=== PATIENT | female | born 1950 | race Caucasian/White ===

== ENCOUNTER 2019-01-06 07:12 | Emergency (ER) | payer MEDICARE, OTHER ==
[2019-01-06] MEDS ORDERED: FENTANYL CITRATE INJ/PF 100 MCG/2 ML AMPUL IV ONE ×2 (07:33→11:16)
[2019-01-06] MEDS ORDERED: ONDANSETRON HCL INJ/PF 4 MG/2 ML SDV IV ONE ×2 (07:35→11:16)
--- NOTE | 2019-01-06 08:12 | RADIOLOGY REPORT (SQ) ---
EXAM DESCRIPTION: HIP LEFT AP/LATERAL COMPLETED DATE/TIME: 01/06/2019 8:04 am REASON FOR STUDY: fall, hip pain COMPARISON: None. NUMBER OF VIEWS: Two views. TECHNIQUE: AP pelvis and additional frog-leg view of the left hip. LIMITATIONS: None. FINDINGS: MINERALIZATION: Normal. LEFT HIP: There is a transverse, displaced and foreshortened fracture of the proximal left femoral di aphysis. RIGHT HIP: No fracture or dislocation. No worrisome bone lesions. PELVIS: No fracture. SOFT TISSUES: No findings. OTHER: No other significant finding. IMPRESSION: There is a transverse, displaced and foreshortened fracture of the proximal left femoral diaphysis. TECHNICAL DOCUMENTATION: JOB ID: [id number] [employer]- All Rights Reserved Reading location - IP/workstation name: [email or web address]
[2019-01-06] MEDS ORDERED: NORMAL SALINE 1000 ML 1,000 ML IV ONE (08:34)
[2019-01-06 08:47] LABS: ABSOLUTE EOSINOPHILS # (AUTO) 0.1 10^3/uL (0.0-0.6); ABSOLUTE LYMPHOCYTES (AUTO) 1.5 10^3/uL (0.5-4.7); ABSOLUTE MONOCYTES (AUTO) 0.4 10^3/uL (0.1-1.4); ABSOLUTE NEUT (AUTO) 5.5 10^3/uL (1.7-8.2); BASOPHILS % (AUTO) 0.6 % (0-2); EOSINOPHILS % (AUTO) 0.8 % (0-6); HEMATOCRIT 37.2 % (36.0-47.0); HEMOGLOBIN 12.9 g/dL (12.0-15.5); LYMPHOCYTES % (AUTO) 19.6 % (13-45); MEAN CORPUSCULAR HEMOGLOBIN 30.5 pg (27.0-33.4); MEAN CORPUSCULAR HGB CONC 34.6 g/dL (32.0-36.0); MEAN CORPUSCULAR VOLUME 88 fl (80-97); MONOCYTES % (AUTO) 5.6 % (3-13); PLATELET COUNT 245 10^3/uL (150-450); RED BLOOD COUNT 4.22 10^6/uL (3.72-5.28); RED CELL DISTRIBUTION WIDTH 14.5 % (11.5-14.0); SEGMENTED NEUTROPHILS % (AUTO) 73.4 % (42-78); TOTAL CELLS COUNTED % (AUTO) 100 %; WHITE BLOOD COUNT 7.4 10^3/uL (4.0-10.5)
--- NOTE | 2019-01-06 09:05 | ER Document Report ---
Entered by GERMÁN SHAW SCRIBE 01/06/19 0741 Acting as scribe for:FLAVIO LINK MD ED Extremity Problem, Lower - General Stated Complaint: FALL/HIP PAIN Time Seen by Provider: 01/06/19 07:23 Primary Care Provider: JACKY DAVIDSON MD [Primary Care Provider] - Follow up as needed Mode of Arrival: Medic Information source: Patient, Relative, Outside Facility Records Notes: 69-year-old female that presents to the emergency department today with complaints of left hip pain after a fall that occurred just prior to arrival. Patient states the pelvic binder that EMS put on her has reduced her pain significantly. The patient was out walking with her granddaughter, she hit her toe on some uneven concrete, fell and had immediate pain to her left hip. 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 HEENT: Normocephalic. Atraumatic. PERRL. Extraocular movements intact. Oropharynx clear. Neck: Supple. Non-tender. Respiratory: No respiratory distress. Clear and equal breath sounds bilaterally. Cardiovascular: Regular rate and rhythm. Abdominal: Normal Inspection. Non-tender. No distension. Normal Bowel Sounds. Back: Non-tender. No deformity or step off. Extremities: Upper extremities: Normal inspection. Normal ROM. Lower extremities: Wearing pelvic binder. Left knee is flexed and tucked under her right leg. Left hip is externally rotated. Left foot is warm, sensation intact distally. Neurological: Normal cognition. AAOx4. Normal speech. Psychological: Normal affect. Normal Mood. Skin: Warm. Dry. Normal color. Course - Re-evaluation Re-evalutation: 01/06/19 09:16 I reviewed the findings with the patient and her granddaughter. We do not have orthopedic coverage at this facility today. Initially requested transfer to [facility]. They are on regional management, meaning they are not taking anything but STEMI's and strokes. I next called [facility]. 01/06/19 09:20 Dr. Vu from the orthopedic service at [facility] called back and will consult on the patient and operate on her. There is a bed delay at this time, and they will get back with me about a timeframe for transfer. She did mention that the bones looked like she was taken biphosphonate's, which she is, and she appeared to be at risk of a similar fracture on the other side and would consider doing a prophylactic nailing on the right side at the same time that a repair of the left side. 01/06/19 09:33 On further questioning, the patient reports that she has been having pain on the right hip region for the last several weeks or more. She has not been having pain on the left side which fractured today. 01/06/19 11:09 [facility] transfer center called back and reported that they were on a 24 to 36- hour bed delay at this time. I called [facility] and spoke with Dr. Braga from the orthopedic service, he will accept the patient in transfer for surgical repair. 01/06/19 12:04 Transport is here for the patient to go to [facility]. She is resting comfortably. Vital signs are stable. She is stable for transport. - Vital Signs Vital signs: Temp Pulse Resp BP Pulse Ox 98.8 F 64 20 127/61 H 95 01/06/19 11:53 01/06/19 11:53 01/06/19 11:53 01/06/19 11:53 01/06/19 11:53 - Laboratory Result Diagrams: 01/06/19 08:29 01/06/19 08:29 Laboratory results interpreted by me: 08/02/19 08/02/19 08:29 08:29 RDW 14.5 H Sodium 136.7 L Total Protein 6.2 L - Diagnostic Test Radiology reviewed: Image reviewed, Reports reviewed - Left hip shows a matthews sverse, displaced and foreshortened fracture of the proximal left femoral diaphysis - EKG Interpretation by Me EKG shows normal: Sinus rhythm, [place], Intervals, QRS Complexes, ST-T Waves Rate: Normal - 53 Rhythm: NSR Discharge - Discharge Clinical Impression: Fracture of proximal end of femur Qualifiers: Encounter type: initial encounter Fracture type: closed Laterality: left Qualified Code(s): S72.002A - Fracture of unspecified part of neck of left femur, initial encounter for closed fracture Condition: Stable Disposition: [facility] Referrals: JACKY DAVIDSON MD [Primary Care Provider] - Follow up as needed Scribe Attestation: 01/06/19 09:16 I personally performed the services described in the documentation, reviewed and edited the documentation which was dictated to the scribe in my presence, and it accurately records my words and actions. I personally performed the services described in the documentation, reviewed and edited the documentation which was dictated to the scribe in my presence, and it accurately records my words and actions.
[2019-01-06 09:08] LABS: ALANINE AMINOTRANSFERASE 35 U/L (9-52); ALBUMIN 3.9 g/dL (3.5-5.0); ALKALINE PHOSPHATASE 53 U/L (38-126); ANION GAP 7 (5-19); ASPARTATE AMINO TRANSFERASE 30 U/L (14-36); BILIRUBIN,DIRECT 0.3 mg/dL (0.0-0.4); BILIRUBIN,TOTAL 0.5 mg/dL (0.2-1.3); BLOOD UREA NITROGEN 18 mg/dL (7-20); CARBON DIOXIDE 28 mmol/L (22-30); CHLORIDE 102 mmol/L (98-107); GLUCOSE 109 mg/dL (75-110); POTASSIUM 4.3 mmol/L (3.6-5.0); TOTAL PROTEIN 6.2 g/dL (6.3-8.2)
[2019-01-06] MEDS ORDERED: DEXTROSE 5%-LACTATED RINGERS 1,000 ML IV ONE (09:23)
[2019-01-06 09:58] LABS: APPEARANCE,URINE CLEAR; BILIRUBIN,URINE NEGATIVE (NEGATIVE); COLOR,URINE YELLOW; GLUCOSE, URINE NEGATIVE (NEGATIVE); KETONES,URINE NEGATIVE (NEGATIVE); LEUKOCYTE ESTERASE,URINE NEGATIVE (NEGATIVE); NITRITE,URINE NEGATIVE (NEGATIVE); PROTEIN,URINE NEGATIVE (NEGATIVE); URINE SPECIFIC GRAVITY 1.016; UROBILINOGEN,URINE NEGATIVE mg/dL (<2.0)
[2019-01-06 11:54] VITALS: BP 127/61
--- NOTE | 2019-01-06 14:33 | EKG REPORT ---
SEVERITY:- OTHERWISE NORMAL ECG - SINUS RHYTHM BORDERLINE LEFT AXIS DEVIATION : Confirmed by: Yas Cohn MD 06-Jan-2019 14:31:33
== END 2019-01-06 12:10 | disposition short-term general hospital (02) ==
LOC: ER 07:12
DX: S72.002A Fracture of unspecified part of neck of left femur, initial encounter for closed fracture (principal); M25.552 Pain in left hip; W19.XXXA Unspecified fall, initial encounter; I10 Essential (primary) hypertension
CPT/HCPCS: 93005; 96376; 99284; 96361; 51702; 96374; 96375; 36415; 85025; 80053; 81001; 73502; 93010; J3010; J2405; J7121; J7030

== ENCOUNTER → 2020-05-18 | Outpatient (CLI) | payer MEDICARE, OTHER ==
[2020-05-18 13:50] VITALS: BP 116/58
--- NOTE | 2020-05-18 13:50 | ER RDC ASSESSMENT REPORT ---
Intake - In the Last 14 days Have you traveled outside [place]?: No Have you been in close contact with someone CONFIRMED: Yes Worked in Healthcare?: No - Symptoms Subjective Fever([place] feverish): No Chills: No Muscule Aches: No Runny Nose: No Sore Throat: No Cough (New or worsening chronic cough): No Shortness of breath: No Nausea or Vomiting: No Headache: No Abdominal Pain: No Diarrhea(3 or more loose stools in last 24 hours): No - Do you have any of the following Chronic lung disease: Asthma or emphysema or COPD: No Cystic Fibrosis: No Diabetes: No High Blood Pressure: Yes Cardiovascular Disease: Yes Chronic Kidney Disease: No Chronic Liver Disease: No Chronic blood disorder like Sickle Cell Disease: No Weak immune system due to disease or medication: No Neurologic condition that limits movement: No Developmental delay - Moderate to Severe: No Recent (within past 2 weeks) or current : No Morbid Obesity (>100 pounds over ideal weight): No - Objective Temperature: 98 F Pulse Rate: 61 Respiratory Rate: 15 Blood Pressure: 116/58 O2 Sat by Pulse Oximetry: 95 Objective: Patient is a well-appearing 70-year-old female, who presents today for COVID-19 screening. Disposition: Home; Selfcare General - General Stated Complaint: COVID-19 screening Mode of Arrival: Ambulatory Information source: Patient Notes: The patient was evaluated during the global COVID-19 pandemic. That diagnosis was suspected/considered upon initial presentation. Their evaluation, treatment, and testing was consistent with current guidelines for patients who present with complaints or symptoms that may be related to COVID-19. Patient reports having close contact exposure to a COVID-19 lab confirmed positive individual. - HPI Patient complains to provider of: Asymptomatic, no complaint Quality of pain: No pain Severity: None Pain Level: Denies Associated symptoms: None Exacerbated by: Denies Relieved by: Denies Similar symptoms previously: No Recently seen / treated by doctor: No - Related Data Allergies/Adverse Reactions: ampicillin Allergy (Verified 01/06/19 08:31) Past Medical History - General Information source: Patient - Social History Smoking Status: Never Smoker Cigarette use (# per day): No Chew tobacco use (# tins/day): No Smoking Education Provided: No Frequency of alcohol use: Occasional Drug Abuse: None Occupation: Retired Lives with: Family Family History: Reviewed & Not Pertinent Patient has suicidal ideation: No Patient has homicidal ideation: No - Past Medical History Cardiac Medical History: Reports: Hx Hypercholesterolemia, Hx Hypertension Renal/ Medical History: Denies: Hx Peritoneal Dialysis Past Surgical History: Reports: Hx Breast Surgery - biopsy, Hx Tubal Ligation Physical Exam - General General appearance: Appears well In distress: None Notes: PHYSICAL EXAMINATION: GENERAL: Well-appearing with No Acute Distress noted. HEAD: Atraumatic, Normocephalic. EYES: Sclera anicteric, Conjunctiva are pink and moist. ENT: Nares patent. Moist mucous membranes. NECK: Normal range of motion, supple without lymphadenopathy. LUNGS: CTAB and equal. No wheezes rales or rhonchi. HEART: Regular rate and rhythm without murmurs. ABDOMEN: Soft, nontender, normal bowel sounds, no guarding. EXTREMITIES: Normal range of motion, no pitting edema. No cyanosis. BACK: No midline or CVA tenderness. No step-off or deformity. NEUROLOGICAL: Cranial nerves grossly intact. Normal speech. Normal gait. PSYCH: Calm, Cooperative, and answers questions appropriately. Normal mood and affect. SKIN: Warm, Dry, Normal color and Turgor, No obvious lesions or rash noted. Diagnostic Results Laboratory Results: Patient advised at this time they are considered a Person Under Investigation (PUI) for the COVID-19 Coronavirus. They have been made aware it is currently taking 3 to 5 days to receive their results. Patient advised The [facility] Department will call to notify them of a POSITIVE result, and an [facility] steam brush operator will call to notify them of a NEGATIVE result. Patient Education/Counseling Counseling/Education: Patient presents with upper respiratory symptoms worrisome for possible COVID- 19. Patient does not have symptoms worrisome as an emergency such as difficulty breathing, shortness of breath, chest pain, pressure, confusion or cyanosis. Patient appears suitable for discharge. Patient's vital signs are stable and patient is nontoxic in appearance. Good return precautions have been discussed with patient, patient verbalized understanding and is agreeable with discharge plan of care at this time. Patient provided COVID-19 discharge instructions to include: As a person under investigation for COVID-19, the [facility], division of public health advises you to adhere to the following guidance until your test results are reported to you. If your test result is positive, you will receive additional information from your provider and your local health department at that time. Remain at home until you are cleared by the health provider or public health authorities. Keep a log of visitors to your home, notify any visitors to your home of your isolation status. If you plan to move to a new address or leave the county, notify the local health department in your County. Call your doctor or seek care if you have an urgent medical need. Before seeking medical care, call ahead to get instructions from the provider before arriving at the medical office clinic or hospital. Notify them that you are being tested for the virus that causes COVID-19 so that arrangements can be made, as necessary, to prevent transmission to others in the healthcare setting. Next, notify the local health department in your county. If a medical emergency arises and you need to call 911, inform dispatch and the first responders that you are being tested for the virus that causes COVID-19. Next, notify the local health department in your county. Guidance for worsening S/SX: For worsening symptoms, patient has been advised to contact their Primary Care Provider, or go to the nearest Emergency Department. RDC Discharge - Discharge Clinical Impression: COVID-19 Screening URI (upper respiratory infection) Qualifiers: URI type: unspecified URI Qualified Code(s): J06.9 - Acute upper respiratory infection, unspecified Condition: Stable Disposition: Home; Selfcare
== END ==
LOC: RDC 11:45
PROVIDERS: ATTEND Nurse Practitioner Family
DX: Z20.828 Contact with and (suspected) exposure to other viral communicable diseases (principal)
CPT/HCPCS: 99201; U0003; G0463; C9803; 87635; 99211